=== PATIENT | female | born 2000 | race African-American/Black ===

== ENCOUNTER 2021-01-05 12:31 | Emergency (ER) | payer OTHER ==
[2021-01-05 12:37] VITALS: BP 113/65; PULSE 110; TEMP 100.4; BMI 20.2
[2021-01-05] MEDS ORDERED: ACETAMINOPHEN 500 MG TABLET (FP) PO ONE (13:56)
[2021-01-07 02:09] LABS: SARS-CoV-2 NAA Not Detected (Not Detected)
== END 2021-01-05 14:00 | disposition left against medical advice (07) ==
LOC: JER 12:31
DX: R50.9 Fever, unspecified (principal); R05 Cough; Z11.52 Encounter for screening for COVID-19
CPT/HCPCS: 99284-25; C9803; U0003; U0005